=== PATIENT | male | born 1945 | race Caucasian/White ===

== ENCOUNTER 2019-06-18 07:35 | Outpatient (CLI) | payer OTHER, SELFPAY ==
--- NOTE | 2019-06-18 08:09 | NMCV_ITS ---
NM selin perf SPECT r/s* [id number] Daniel Thompson Age: 73 Gender: M : 1945 Exam Date: 06/18/2019 09:06 Ordering Phys: Kit Sibley MD ([email or web address]) Technologist: LIAT Lund Exam Location: [facility] Indications: CHEST PAIN STRESS TEST [facility] IMAGE PROTOCOL Rest/Stress 1 Lexiscan Day Radiopharmaceutical Dose (mCi) Administration Site Administered by Rest: Tc-99m 10.7 IV LIAT Williamson Sestamibi Stress:Tc-99m 31.8 IV LIAT Williamson Sestamibi Rest: 18-Jun-2019 60 Discovery 630 Stress: 18-Jun-2019 30 Discovery 630 0.4mg Lexiscan. Images obtained in supine and prone position. SPECT RESULTS Technical Quality: Excellent Raw Data Analysis: Normal Image Corrections: No attenuation or motion correction applied Summed Stress Score: 20 Summed Rest Score: 17 Summed Difference Score: 3 PERFUSION FINDINGS Moderate area of severely decreases uptake in the mid and apical anterior, mid anteroseptal, apical septal, apical inferior, apical lateral and LV apex. Some reversibility was noted in the mid septum and the anterior wall, at rest. FUNCTIONAL RESULTS (calculated via Gated SPECT) Stress Image LV EF (%): 58 Stress EDV (mL):78 TID: 1.34 Stress ESV (mL):33 FUNCTIONAL FINDINGS: Segmental wall motion analysis revealing mild diffuse hypokinesia of the septum IMPRESSIONS 1. Myocardial perfusion imaging revealing areas of severely decreases uptake in the mid and apical anterior, anteroseptal and apical segments with some areas of ischemia in the anterior wall and septum, suggestive of myocardial scarring with ischemia in the distribution of the left anterior descending artery and possible right coronary artery territories. #2. Normal LV ejection fraction of 58%. #3. LV wall motion analysis revealing mild diffuse hypokinesia of the septum. #4. Normal LV volume #5. Elevated transient ischemic dilatation ratio also may suggest endocardial ischemia. No similar previous studies are available for comparison Dr Kit Sibley MD FACC (Electronically Signed) Final Date: 18 June 2019 16:58 S
--- NOTE | 2019-06-18 08:09 | ECG_ITS ---
NAME OF STUDY: LEXISCAN SESTAMIBI STRESS TEST INDICATION: Chest Pain, PROCEDURE: At the baseline, the EKG revealed normal sinus rhythm with right bundle branch block pattern. The baseline blood pressure was 126/70 mm Hg with a heart rate of 70 beats/min. Lexiscan was infused over a period of 20 seconds. A total of 0.4 milligrams of Lexiscan was infused. The stress phase was continued for a total of 5 minutes. Heart rate at the end of the stress phase was 80 with a blood pressure 123/65. The EKG at the peak infusion revealed no significant changes. Sestamibi was injected 20 seconds after the Lexiscan infusion. Blood pressure at the end of the recovery phase was 124/65 with a heart rate of 81 per minute. CONCLUSION: 1. No significant EKG changes with the LexiScan infusion 2. No LexiScan induced chest pain or cardiac arrhythmia 3. Normal blood pressure and heart rate response 4. Sestamibi/sestamibi perfusion scan pending; see separate report. Electronically Signed On 06-18-2019 15:02:54 [employer]PECTOR [employer] by Kit Sibley M.D. [id number]
[2019-06-18 08:10] VITALS: BMI 29.9
[2019-06-18] MEDS: regadenoson 0.4 Mg/5 ml Syringe IVP (11:09)
[2019-06-18 11:23] VITALS: BP 124/65; PULSE 79
== END 2019-06-18 07:36 | disposition home or self-care (01) ==
LOC: RAD 07:49 → CDL 08:24
PROVIDERS: Family Provider Specialist; PCP Specialist; Visit Provider Internal Medicine Cardiovascular Disease
DX: R07.89 Other chest pain (principal)
CPT/HCPCS: 78452; 93017; A9500; J2785

== ENCOUNTER → 2019-12-13 11:12 | Outpatient (BNVA) | payer OTHER, SELFPAY | PROVIDERS: Family Provider Specialist; PCP Specialist; Visit Provider Internal Medicine Cardiovascular Disease | DX: E78.5 Hyperlipidemia, unspecified (principal); I50.33 Acute on chronic diastolic (congestive) heart failure; R06.02 Shortness of breath; I25.5 Ischemic cardiomyopathy | CPT/HCPCS: 80048; 80061; 80076; 83880 ==

== ENCOUNTER → 2019-12-26 11:17 | Outpatient (BNVA) | payer OTHER, SELFPAY | PROVIDERS: Family Provider Specialist; PCP Specialist; Visit Provider Internal Medicine Cardiovascular Disease | DX: I25.5 Ischemic cardiomyopathy (principal); I25.119 Atherosclerotic heart disease of native coronary artery with unspecified angina pectoris; E78.5 Hyperlipidemia, unspecified; I10 Essential (primary) hypertension | CPT/HCPCS: 80048; 83880 ==

== ENCOUNTER → 2020-01-09 10:47 | Outpatient (BNVA) | payer OTHER, SELFPAY | PROVIDERS: Family Provider Specialist; PCP Specialist; Visit Provider Internal Medicine Cardiovascular Disease | DX: I25.5 Ischemic cardiomyopathy (principal); E78.5 Hyperlipidemia, unspecified; I25.119 Atherosclerotic heart disease of native coronary artery with unspecified angina pectoris | CPT/HCPCS: 80048; 83880 ==

== ENCOUNTER 2020-01-18 10:19 | Outpatient (CLI) | payer OTHER, SELFPAY ==
--- NOTE | 2020-01-18 10:27 | US_ITS ---
WS: [id number] Bilateral renal ultrasound, 01/18/2020 Clinical Data: renal artery stenosis Comparison: None. Findings: The right kidney measures 10.3 cm x 5.9 cm x 6.1 cm and the left kidney is 12.2 cm x 4.7 cm x 5.9 cm. There is a cortical cyst in the right kidney measuring 1.87 x 2.21 x 2.37 cm. There is a cyst on the cortex of the left kidney measuring 1.52 x 2.00 x 1.93 cm. There is a question able left renal calculus The abdominal aorta and inferior vena cava show no vascular abnormalities. The bladder was scanned and was not remarkable. US/US renal BI* [id number] Impression: Negative bilateral renal ultrasound with bilateral renal cortical cysts and que stionable left renal calculus.
--- NOTE | 2020-01-18 10:29 | USCV_ITS ---
Daniel Thompson Age: 74 Gender: M : 1945 Exam Date: 01/18/2020 10:46 Ordering Phys: Kit Sibley MD ([email or web address]) Technologist: Shelby Saldaña Exam Location: [facility] [place] Indication: ISCHEMIC CARDIOMYOPATHY BP: 140 / 60 HR: 65 Rhythm: Sinus Technical Quality: Adequate MEASUREMENTS (Male / Female) Normal Values 2D ECHO LV Diastolic Diameter PLAX 4.1 cm 4.2 - 5.9 / 3.9 - 5.3 cm LV Systolic Diameter PLAX 3.4 cm LV Chamber Size 3.1 cm IVS Diastolic Thickness 1.1 cm 0.6 - 1.0 / 0.6 - 0.9 cm IVS Systolic Thickness 1.6 cm LVPW Diastolic Thickness 1.2 cm 0.6 - 1.0 / 0.6 - 0.9 cm LVPW Systolic Thickness 1.7 cm RV Chamber Size 3.4 cm LVOT Diameter 2.0 cm LV Ejection Fraction 2D Teich 35.2 % LV Ejection Fraction MOD 2C 43.0 % LV Ejection Fraction 2C AL 48.2 % LA Diameter 4.2 cm LA Width 3.2 cm LA Height 3.8 cm RA Width 3.6 cm RA Height 3.9 cm Aorta at Sinotubular Diameter 3.6 cm M-MODE LV Diastolic Diameter MM 3.5 cm 4.2 - 5.9 / 3.9 - 5.3 cm LV Systolic Diameter MM 2.1 cm LV Ejection Fraction MM Teich 71.4 % IVS Diastolic Thickness MM 1.4 cm 0.6 - 1.0 / 0.6 - 0.9 cm IVS Systolic Thickness MM 1.5 cm LVPW Diastolic Thickness MM 1.2 cm 0.6 - 1.0 / 0.6 - 0.9 cm LVPW Systolic Thickness MM 1.8 cm RV Diastolic Diameter MM 1.7 cm Aortic Annulus Diameter 3.3 cm LA Ao Ratio MM 1.3 MV E Point Septal Separation 1.0 cm DOPPLER AV Peak Velocity 130.0 cm/s LVOT Peak Velocity 93.0 cm/s AV Area Cont Eq vti 2.3 cm squared AV Area Cont Eq pk 2.2 cm squared MV Area PHT 2.5 cm squared Mitral E to A Ratio 0.8 MV E' Velocity 8.0 cm/s Mitral E to MV E' Ratio 7.5 Mitral E to LV E' Lateral Ratio 7.8 Mitral E to LV E' Septal Ratio 7.3 TR Peak Velocity 262.1 cm/s TR Peak Gradient 27.5 mmHg TR Mean Velocity 196.8 cm/s TR Mean Gradient 17.8 mmHg TR Velocity Time Integral 80.4 cm TV Peak E Velocity 56.0 cm/s Right Atrial Pressure 3.0 mmHg Pulmonary Artery Systolic Pressu 30.5 mmHg PV Peak Velocity 58.0 cm/s RV Acceleration Time 0.1 s RV Ejection Time 0.2 s RV AcT/ET 0.4 FINDINGS Left Ventricle Diffuse hypokinesia of the septum and the anteroseptal segments. LV ejection fraction of 48%.mild left ventricular hypertrophy. Grade I/IV diastolic dysfunction (abnormal relaxation filling pattern), normal to mildly elevated filling pressures. Right Ventricle Normal right ventricular size and systolic function. Right Atrium Normal right atrial size. Left Atrium Left atrium upper limit of normal size Mitral Valve Thickened mitral valve. Aortic Valve Thickened aortic valve. Tricuspid Valve Mild tricuspid valve regurgitation. Pulmonic Valve Pulmonic valve not well visualized. Pericardium No pericardial effusion. Aorta Normal aortic annulus size. CONCLUSIONS Normal LV size with diminished ejection fraction 48%. Wall motion normalities as mentioned above. Type I diastolic dysfunction. Left atrium upper limit of normal size. Thickened aortic valve. Mild tricuspid valve regurgitation. Estimated pulmonary artery peak systolic pressure of 31 mmHg There is no pericardial effusion. There are no intracardiac masses. Compared to the study from 11/13/2018, there is some improvement in the LV ejection fraction Dr Kit Sibley MD FAC (Electronically Signed) Final Date: 18 January 2020 15:28 S
== END 2020-01-18 10:20 | disposition home or self-care (01) ==
PROVIDERS: PCP Specialist; Visit Provider Internal Medicine Cardiovascular Disease
DX: I25.5 Ischemic cardiomyopathy (principal); I08.2 Rheumatic disorders of both aortic and tricuspid valves; I70.1 Atherosclerosis of renal artery
CPT/HCPCS: 76770; 93306

== ENCOUNTER → 2020-01-22 10:10 | Outpatient (BNVA) | payer OTHER, SELFPAY | PROVIDERS: PCP Specialist; Visit Provider Internal Medicine Cardiovascular Disease | DX: I25.119 Atherosclerotic heart disease of native coronary artery with unspecified angina pectoris (principal); I25.5 Ischemic cardiomyopathy; I10 Essential (primary) hypertension | CPT/HCPCS: 80048 ==

== ENCOUNTER → 2021-02-12 12:15 | Outpatient (BNVA) | payer OTHER, SELFPAY | PROVIDERS: Visit Provider Internal Medicine Cardiovascular Disease | DX: E78.5 Hyperlipidemia, unspecified (principal); I50.33 Acute on chronic diastolic (congestive) heart failure; R06.02 Shortness of breath; I25.5 Ischemic cardiomyopathy; G47.33 Obstructive sleep apnea (adult) (pediatric); I10 Essential (primary) hypertension; F17.200 Nicotine dependence, unspecified, uncomplicated; I25.119 Atherosclerotic heart disease of native coronary artery with unspecified angina pectoris; N18.4 Chronic kidney disease, stage 4 (severe) | CPT/HCPCS: 80061 ==

== ENCOUNTER → 2021-08-13 11:46 | Outpatient (BNVA) | payer OTHER, SELFPAY | PROVIDERS: Visit Provider Internal Medicine Cardiovascular Disease | DX: I11.0 Hypertensive heart disease with heart failure (principal); I25.119 Atherosclerotic heart disease of native coronary artery with unspecified angina pectoris; N18.4 Chronic kidney disease, stage 4 (severe); G47.33 Obstructive sleep apnea (adult) (pediatric); F17.210 Nicotine dependence, cigarettes, uncomplicated; Z79.82 Long term (current) use of aspirin | CPT/HCPCS: 36415; 80048; 83880; 99214 ==

== ENCOUNTER 2021-09-10 13:20 | Outpatient (CLI) | payer OTHER, SELFPAY ==
[2021-09-10 15:03] LABS: Anion Gap 17.7 (5-19); Blood Urea Nitrogen 49 mg/dL (8-23); Calcium 9.6 mg/dL (8.5-10.5); Carbon Dioxide 27 mmol/L (22-29); Chloride 101 mmol/L (98-107); Glucose 83 mg/dL (65-115); NT Pro B Type Natriuretic Pept 639 pg/mL (0-125); Osmolality Calculated 304 mOsm/kg (285-295); Potassium 4.7 mmol/L (3.5-5.1); Sodium 141 mmol/L (136-145)
== END 2021-09-10 13:21 | disposition home or self-care (01) ==
LOC: LAB 13:21
PROVIDERS: Visit Provider Internal Medicine Cardiovascular Disease
DX: E78.5 Hyperlipidemia, unspecified (principal); I25.5 Ischemic cardiomyopathy; I10 Essential (primary) hypertension; I25.119 Atherosclerotic heart disease of native coronary artery with unspecified angina pectoris
CPT/HCPCS: 36415; 80048; 83880

== ENCOUNTER → 2021-09-17 13:58 | Outpatient (BNVA) | payer OTHER, SELFPAY | PROVIDERS: Visit Provider Internal Medicine Cardiovascular Disease | DX: I25.119 Atherosclerotic heart disease of native coronary artery with unspecified angina pectoris (principal); I12.9 Hypertensive chronic kidney disease with stage 1 through stage 4 chronic kidney disease, or unspecified chronic kidney disease; F17.210 Nicotine dependence, cigarettes, uncomplicated; N18.4 Chronic kidney disease, stage 4 (severe); I25.5 Ischemic cardiomyopathy; G47.33 Obstructive sleep apnea (adult) (pediatric); Z99.89 Dependence on other enabling machines and devices; E78.5 Hyperlipidemia, unspecified | CPT/HCPCS: 99214 ==

== ENCOUNTER → 2021-11-19 10:34 | Outpatient (BNVA) | payer OTHER, SELFPAY | PROVIDERS: Visit Provider Internal Medicine Cardiovascular Disease | DX: I25.5 Ischemic cardiomyopathy (principal); I25.119 Atherosclerotic heart disease of native coronary artery with unspecified angina pectoris; G47.33 Obstructive sleep apnea (adult) (pediatric); E78.5 Hyperlipidemia, unspecified; I95.9 Hypotension, unspecified; F17.210 Nicotine dependence, cigarettes, uncomplicated; I13.0 Hypertensive heart and chronic kidney disease with heart failure and stage 1 through stage 4 chronic kidney disease, or unspecified chronic kidney disease; N18.4 Chronic kidney disease, stage 4 (severe); I50.33 Acute on chronic diastolic (congestive) heart failure | CPT/HCPCS: 36415; 80048; 83880; 99214 ==

== ENCOUNTER 2021-12-10 11:14 | Outpatient (CLI) | payer OTHER, SELFPAY ==
[2021-12-10 12:30] LABS: Anion Gap 14.9 (5-19); Blood Urea Nitrogen 61 mg/dL (8-23); Carbon Dioxide 29 mmol/L (22-29); Chloride 98 mmol/L (98-107); Glucose 127 mg/dL (65-115); NT Pro B Type Natriuretic Pept 580 pg/mL (0-450); Osmolality Calculated 303 mOsm/kg (285-295); Potassium 4.9 mmol/L (3.5-5.1); Sodium 137 mmol/L (136-145)
== END 2021-12-10 11:15 | disposition home or self-care (01) ==
LOC: LAB 11:15
PROVIDERS: Visit Provider Internal Medicine Cardiovascular Disease
DX: N18.4 Chronic kidney disease, stage 4 (severe) (principal); I25.119 Atherosclerotic heart disease of native coronary artery with unspecified angina pectoris; I25.5 Ischemic cardiomyopathy
CPT/HCPCS: 36415; 80048; 83880

== ENCOUNTER 2022-03-30 14:22 | Outpatient (CLI) | payer OTHER, SELFPAY ==
--- NOTE | 2022-03-30 14:33 | USCV_ITS ---
Daniel Thompson Age: 76 Gender: M : 1945 Exam Date: 03/30/2022 14:41 Ordering Phys: Kit Sibley MD ([email or web address]) Technologist: Exam Location: [facility] [place] Indication: sob BP: 112 / 60 HR: 96 Rhythm: Sinus Technical Quality: Adequate MEASUREMENTS (Male / Female) Normal Values 2D ECHO LV Diastolic Diameter PLAX 4.2 cm 4.2 - 5.9 / 3.9 - 5.3 cm LV Systolic Diameter PLAX 2.9 cm IVS Diastolic Thickness 1.2 cm 0.6 - 1.0 / 0.6 - 0.9 cm IVS Systolic Thickness 1.6 cm LVPW Diastolic Thickness 1.3 cm 0.6 - 1.0 / 0.6 - 0.9 cm LVPW Systolic Thickness 1.4 cm LVOT Diameter 2.1 cm LV Ejection Fraction 2D Teich 60.9 % LV Ejection Fraction MOD 2C 65.2 % LV Ejection Fraction 2C AL 65.6 % LA Diameter 3.8 cm IVC Diameter 1.3 cm M-MODE Aortic Annulus Diameter 3.4 cm LA Ao Ratio MM 1.2 MV E Point Septal Separation 1.5 cm DOPPLER AV Peak Velocity 94.0 cm/s LVOT Peak Velocity 65.0 cm/s AV Area Cont Eq vti 2.8 cm squared AV Area Cont Eq pk 2.3 cm squared MV Area PHT 5.0 cm squared Mitral E to A Ratio 0.8 MV E' Velocity 33.0 cm/s Mitral E to MV E' Ratio 6.3 Mitral E to LV E' Lateral Ratio 5.7 Mitral E to LV E' Septal Ratio 7.0 TR Peak Velocity 130.7 cm/s TR Peak Gradient 6.8 mmHg TV Peak E Velocity 72.0 cm/s Right Atrial Pressure 3.0 mmHg Pulmonary Artery Systolic Pressu 9.8 mmHg FINDINGS Left Ventricle Normal left ventricular size and systolic function, EF 68 %. No regional wall motion abnormalities. Grade I/IV diastolic dysfunction (abnormal relaxation filling pattern), normal to mildly elevated filling pressures. Mild left ventricular hypertrophy. Right Ventricle Mildly increased right ventricular size. Possibly normal ejection fraction Right Atrium Mildly increased right atrial size. Left Atrium The left atrium is normal in size. Mitral Valve Thickened mitral valve. Mild mitral annular calcification. Aortic Valve Thickened aortic valve. Tricuspid Valve Tricuspid valve not well visualized. Pulmonic Valve Pulmonic valve not well visualized. Pericardium No pericardial effusion. Aorta Normal aortic annulus size. IVC Normal inferior vena cava. CONCLUSIONS Normal left ventricular size and systolic function, EF 68 %. No regional wall motion abnormalities. Grade I/IV diastolic dysfunction (abnormal relaxation filling pattern), normal to mildly elevated filling pressures. Mild left ventricular hypertrophy. Thickened mitral valve. Mild mitral annular calcification. Mildly dilated right atrium and right ventricle. Possibly normal RV ejection fraction thickened aortic valve. Technically difficult study due to poor apical window Comparison with the previous study is difficult because of the difference in the technical quality. Dr Kit Sibley MD FACC (Electronically Signed) Final Date: 31 March 2022 23:31 S
== END 2022-03-30 14:23 | disposition home or self-care (01) ==
LOC: RAD 14:22
PROVIDERS: Visit Provider Internal Medicine Cardiovascular Disease
DX: I25.5 Ischemic cardiomyopathy (principal); I25.119 Atherosclerotic heart disease of native coronary artery with unspecified angina pectoris
CPT/HCPCS: 93306

== ENCOUNTER → 2022-04-12 12:07 | Outpatient (BNVA) | payer OTHER, SELFPAY | PROVIDERS: Visit Provider Nurse Practitioner Family | DX: I25.5 Ischemic cardiomyopathy (principal); I10 Essential (primary) hypertension; I25.119 Atherosclerotic heart disease of native coronary artery with unspecified angina pectoris; I73.9 Peripheral vascular disease, unspecified; R20.0 Anesthesia of skin; R20.2 Paresthesia of skin; F17.210 Nicotine dependence, cigarettes, uncomplicated; Z95.1 Presence of aortocoronary bypass graft | CPT/HCPCS: 99214 ==

== ENCOUNTER → 2022-05-20 13:45 | Outpatient (BNVA) | payer OTHER, SELFPAY | PROVIDERS: Visit Provider Internal Medicine Cardiovascular Disease | DX: I25.5 Ischemic cardiomyopathy (principal); G47.33 Obstructive sleep apnea (adult) (pediatric); I10 Essential (primary) hypertension; E78.5 Hyperlipidemia, unspecified; I77.9 Disorder of arteries and arterioles, unspecified; F17.210 Nicotine dependence, cigarettes, uncomplicated | CPT/HCPCS: 99214 ==